=== PATIENT | male | born 1970 | race Caucasian/White ===

== ENCOUNTER 2018-11-11 05:41 | Inpatient (IN) | payer MEDICAID ==
[~2018-11-11] VITALS: Ht 180.3 cm; Wt 115.7 kg
[2018-11-11 05:48] VITALS: BP_SYST 207
[2018-11-11] MEDS ORDERED: METF1000 PO (05:55)
[2018-11-11] MEDS ORDERED: ASA81 PO (05:55)
[2018-11-11] MEDS ORDERED: SIMV20TA2 PO (05:55)
[2018-11-11] MEDS ORDERED: CARV12.548 PO (05:55)
[2018-11-11] MEDS ORDERED: FURO20TA4 PO (05:55)
[2018-11-11] MEDS ORDERED: IPRATROPIUM/ALBUTEROL SULFATE 3 ML AMPUL.NEB (DUONEB) INH ONE (06:00)
[2018-11-11] MEDS ORDERED: methylPREDNISolone SOD SUCC/PF 62.5 MG/ML VIAL IVP ONE (06:00)
[2018-11-11 06:17] LABS: BASOPHILS # (AUTO) 0.2 K/uL (0.0-0.2); BASOPHILS % (AUTO) 1.6 % (0.0-2.0); EOSINOPHILS # (AUTO) 0.3 K/uL (0.0-0.4); EOSINOPHILS % (AUTO) 1.8 % (0.0-4.0); HEMATOCRIT 47.8 % (36-54); HEMOGLOBIN 15.7 g/dL (14.0-18.0); LYMPHOCYTES # (AUTO) 0.9 K/uL (1.0-5.5); LYMPHOCYTES % (AUTO) 6.4 % (20.5-51.5); MEAN CORPUSCULAR HEMOGLOBIN 31 pg (27-31); MEAN CORPUSCULAR HGB CONC 33 % (32-36); MEAN CORPUSCULAR VOLUME 93 fL (79.0-98.0); MONOCYTES % (AUTO) 7.3 % (1.7-9.3); NEUTROPHILS # (AUTO) 11.5 K/uL (1.8-7.7); NEUTROPHILS % (AUTO) 82.9 % (40.0-70.0); PLATELET COUNT (AUTO) 266 K/uL (130-430); RED BLOOD CELL COUNT(AUTO) 5.15 MIL/uL (4.2-6.2); RED CELL DISTRIBUTION WIDTH 15.4 % (9.0-15.0); WHITE BLOOD COUNT (AUTO) 13.9 K/uL (4.8-10.8)
[2018-11-11 06:32] LABS: CALCIUM 8.2 mg/dL (8.4-11.0); CREATININE 1.14 mg/dL (0.55-1.30); POTASSIUM 4.2 mmol/L (3.5-5.1)
[2018-11-11 06:40] LABS: TOTAL BILIRUBIN 0.6 mg/dL (0.0-1.0)
[2018-11-11] MEDS ORDERED: ASPIRIN 325 MG TABLET PO ONE (07:30)
[2018-11-11] MEDS ORDERED: ASPIRIN 325 MG TABLET ONE (07:36)
[2018-11-11 08:39] VITALS: BP_SYST 167
[2018-11-11] MEDS ORDERED: FUROSEMIDE 20 MG TABLET PO SCH (09:00)
[2018-11-11] MEDS ORDERED: CARVEDILOL 12.5 MG TABLET (COREG) PO SCH (09:00)
[2018-11-11] MEDS ORDERED: ASPIRIN 81 MG TAB.CHEW PO ONE (09:00)
[2018-11-11] MEDS ORDERED: LISINOPRIL 20 MG TABLET PO ONE (09:15)
[2018-11-11] MEDS ORDERED: FUROSEMIDE 40 MG/4 ML VIAL IVP ONE (09:15)
[2018-11-11] MEDS ORDERED: metFORMIN HCL 500 MG TABLET PO ONE (09:30)
[2018-11-11] MEDS ORDERED: cloNIDine HCL 0.1 MG TABLET PO ONE (11:30)
[2018-11-11] MEDS: INSULIN LISPRO SLIDING SCALE 100 UNITS/ML VIAL (humaLOG) SUBCUT PRN ×3 (11:39→22:07)
[2018-11-11 11:56] LABS: BARBITURATE, URINE NEGATIVE (NEG <=200); URINE AMPHETAMINE POSITIVE (NEG <=500)
[2018-11-11 11:57] LABS: BENZODIAZEPINE, URINE NEGATIVE (NEG <=150); CANNABINOID, URINE NEGATIVE (NEG <=50); COCAINE, URINE NEGATIVE (NEG <=150); METHAMPHETAMINES SCREEN,URINE POSITIVE (NEG <=500); OPIATE, URINE NEGATIVE (NEG <=100); PHENCYCLIDINE SCREEN,URINE NEGATIVE (NEG <=25); UR TRICYCLIC ANTIDEPRESSANTS NEGATIVE (NEG <=300); URINE METHADONE NEGATIVE (NEG <=200); URINE OXYCODONE SCREEN NEGATIVE (NEG <=100); URINE PROPOXYPHENE SCREEN NEGATIVE (NEG <=300)
[2018-11-11 12:34] VITALS: BP_SYST 196
[2018-11-11] MEDS ORDERED: hydrALAZINE HCL 10 MG TABLET PO PRN (15:00)
[2018-11-11] MEDS: cefTRIAXone 1 GM in D5W 50 ML IV SCH (15:16)
[2018-11-11 15:49] VITALS: BP_SYST 161
[2018-11-11 16:00] VITALS: BP_SYST 161
[2018-11-11] MEDS ORDERED: metFORMIN HCL 500 MG TABLET PO SCH (18:00)
[2018-11-11] MEDS ORDERED: INSULIN GLARGINE 100 UNITS/ML 10 ML VIAL SUBCUT ONE (19:15)
[2018-11-11] MEDS: IPRATROPIUM/ALBUTEROL SULFATE 3 ML AMPUL.NEB (DUONEB) INH SCH (19:33)
[2018-11-11 20:00] VITALS: BP_SYST 145
[2018-11-11] MEDS: methylPREDNISolone SOD SUCC 40 MG/ML VIAL IVP SCH (21:22)
[2018-11-11] MEDS: SIMVASTATIN 20 MG TABLET PO SCH (21:23)
[2018-11-11] MEDS: CARVEDILOL 12.5 MG TABLET (COREG) PO SCH (21:23)
[2018-11-11] MEDS: FUROSEMIDE 40 MG/4 ML VIAL IVP SCH (21:24)
[2018-11-11] MEDS ORDERED: INSULIN GLARGINE 100 UNITS/ML 10 ML VIAL SUBCUT SCH (22:00)
[2018-11-11] MEDS ORDERED: LORazepam 1 MG TABLET PO SCH (22:30)
[2018-11-12] MEDS: IPRATROPIUM/ALBUTEROL SULFATE 3 ML AMPUL.NEB (DUONEB) INH SCH ×5 (00:11→23:20)
[2018-11-12 01:17] VITALS: BP_SYST 150
[2018-11-12] MEDS: INSULIN LISPRO SLIDING SCALE 100 UNITS/ML VIAL (humaLOG) SUBCUT PRN ×4 (06:18→20:29)
[2018-11-12 06:31] LABS: BASOPHILS % (AUTO) 0.2 % (0.0-2.0); HEMATOCRIT 49.5 % (36-54); HEMOGLOBIN 16.2 g/dL (14.0-18.0); LYMPHOCYTES # (AUTO) 0.7 K/uL (1.0-5.5); LYMPHOCYTES % (AUTO) 3.5 % (20.5-51.5); MEAN CORPUSCULAR HEMOGLOBIN 31 pg (27-31); MEAN CORPUSCULAR HGB CONC 33 % (32-36); MEAN CORPUSCULAR VOLUME 93 fL (79.0-98.0); MONOCYTES # (AUTO) 0.7 K/uL (0.0-1.0); MONOCYTES % (AUTO) 3.5 % (1.7-9.3); NEUTROPHILS # (AUTO) 18.4 K/uL (1.8-7.7); NEUTROPHILS % (AUTO) 92.8 % (40.0-70.0); PLATELET COUNT (AUTO) 311 K/uL (130-430); RED BLOOD CELL COUNT(AUTO) 5.33 MIL/uL (4.2-6.2); RED CELL DISTRIBUTION WIDTH 15.4 % (9.0-15.0)
[2018-11-12 07:05] LABS: WHITE BLOOD COUNT (AUTO) 19.8 K/uL (4.8-10.8)
[2018-11-12 07:32] LABS: CREATININE 1.49 mg/dL (0.55-1.30); POTASSIUM 4.3 mmol/L (3.5-5.1); THYROID STIMULATING HORMONE 0.44 uIu/mL (0.34-4.82); TOTAL BILIRUBIN 0.6 mg/dL (0.0-1.0)
[2018-11-12 08:01] VITALS: BP_SYST 125
[2018-11-12] MEDS: FUROSEMIDE 40 MG/4 ML VIAL IVP SCH ×2 (08:39→20:17)
[2018-11-12] MEDS: ASPIRIN 81 MG TAB.CHEW PO SCH (08:40)
[2018-11-12] MEDS: LISINOPRIL 20 MG TABLET PO SCH (08:41)
[2018-11-12] MEDS: CARVEDILOL 12.5 MG TABLET (COREG) PO SCH ×2 (08:42→20:15)
[2018-11-12] MEDS: methylPREDNISolone SOD SUCC 40 MG/ML VIAL IVP SCH ×2 (08:43→20:17)
[2018-11-12 12:29] VITALS: BP_SYST 122
[2018-11-12] MEDS: cefTRIAXone 1 GM in D5W 50 ML IV SCH (15:33)
[2018-11-12 16:54] VITALS: BP_SYST 145
[2018-11-12 20:08] VITALS: BP_SYST 128
[2018-11-12] MEDS: SIMVASTATIN 20 MG TABLET PO SCH (20:14)
[2018-11-13 00:55] VITALS: BP_SYST 106
[2018-11-13] MEDS: INSULIN LISPRO SLIDING SCALE 100 UNITS/ML VIAL (humaLOG) SUBCUT PRN ×4 (06:07→20:11)
[2018-11-13] MEDS: IPRATROPIUM/ALBUTEROL SULFATE 3 ML AMPUL.NEB (DUONEB) INH SCH ×3 (07:33→18:00)
[2018-11-13] MEDS: CARVEDILOL 12.5 MG TABLET (COREG) PO SCH ×2 (08:00→20:05)
[2018-11-13] MEDS: LISINOPRIL 20 MG TABLET PO SCH (08:01)
[2018-11-13] MEDS: ASPIRIN 81 MG TAB.CHEW PO SCH (08:01)
[2018-11-13] MEDS: FUROSEMIDE 40 MG/4 ML VIAL IVP SCH (08:02)
[2018-11-13] MEDS: methylPREDNISolone SOD SUCC 40 MG/ML VIAL IVP SCH (08:02)
[2018-11-13 08:16] VITALS: BP_SYST 127
[2018-11-13 08:39] LABS: HEMOGLOBIN 16.8 g/dL (14.0-18.0); LYMPHOCYTES # (AUTO) 0.9 K/uL (1.0-5.5)
[2018-11-13 08:42] LABS: CALCIUM 9.3 mg/dL (8.4-11.0); CREATININE 1.72 mg/dL (0.55-1.30); POTASSIUM 4.4 mmol/L (3.5-5.1)
[2018-11-13 08:45] LABS: BASOPHILS % (AUTO) 0.2 % (0.0-2.0); HEMATOCRIT 50.9 % (36-54); LYMPHOCYTES % (AUTO) 3.5 % (20.5-51.5); MEAN CORPUSCULAR HEMOGLOBIN 31 pg (27-31); MEAN CORPUSCULAR HGB CONC 33 % (32-36); MEAN CORPUSCULAR VOLUME 93 fL (79.0-98.0); MONOCYTES # (AUTO) 1.2 K/uL (0.0-1.0); MONOCYTES % (AUTO) 4.8 % (1.7-9.3); NEUTROPHILS # (AUTO) 23.7 K/uL (1.8-7.7); PLATELET COUNT (AUTO) 330 K/uL (130-430); RED BLOOD CELL COUNT(AUTO) 5.48 MIL/uL (4.2-6.2); WHITE BLOOD COUNT (AUTO) 25.8 K/uL (4.8-10.8)
[2018-11-13] MEDS ORDERED: INSULIN GLARGINE 100 UNITS/ML 10 ML VIAL SUBCUT ONE ×2 (08:45)
[2018-11-13 09:28] LABS: NEUTROPHILS % (AUTO) 91.5 % (40.0-70.0)
[2018-11-13 12:28] VITALS: BP_SYST 124
[2018-11-13] MEDS: cefTRIAXone 1 GM in D5W 50 ML IV SCH (14:13)
[2018-11-13 16:22] VITALS: BP_SYST 106
[2018-11-13] MEDS ORDERED: ZOLPIDEM TARTRATE 5 MG TABLET PO PRN (17:30)
[2018-11-13] MEDS ORDERED: MILK OF MAGNESIA 30 ML UDC PO ONE (19:00)
[2018-11-13 20:00] VITALS: BP_SYST 145
[2018-11-13] MEDS: SIMVASTATIN 20 MG TABLET PO SCH (20:06)
[2018-11-13] MEDS: DOCUSATE SODIUM 250 MG CAPSULE PO SCH (20:15)
[2018-11-13] MEDS: ALPRAZolam 0.25 MG TABLET PO PRN (23:06)
[2018-11-14 00:32] VITALS: BP_SYST 126
[2018-11-14] MEDS: IPRATROPIUM/ALBUTEROL SULFATE 3 ML AMPUL.NEB (DUONEB) INH SCH ×4 (06:00→20:12)
[2018-11-14] MEDS: INSULIN LISPRO SLIDING SCALE 100 UNITS/ML VIAL (humaLOG) SUBCUT PRN ×3 (06:12→21:26)
[2018-11-14 07:21] LABS: BASOPHILS # (AUTO) 0.1 K/uL (0.0-0.2); BASOPHILS % (AUTO) 0.3 % (0.0-2.0); EOSINOPHILS % (AUTO) 0.1 % (0.0-4.0); HEMATOCRIT 52.1 % (36-54); LYMPHOCYTES # (AUTO) 1.6 K/uL (1.0-5.5); LYMPHOCYTES % (AUTO) 10.1 % (20.5-51.5); MEAN CORPUSCULAR HEMOGLOBIN 31 pg (27-31); MEAN CORPUSCULAR HGB CONC 33 % (32-36); MEAN CORPUSCULAR VOLUME 94 fL (79.0-98.0); MONOCYTES # (AUTO) 1.6 K/uL (0.0-1.0); MONOCYTES % (AUTO) 9.7 % (1.7-9.3); PLATELET COUNT (AUTO) 308 K/uL (130-430); RED BLOOD CELL COUNT(AUTO) 5.55 MIL/uL (4.2-6.2); RED CELL DISTRIBUTION WIDTH 15.1 % (9.0-15.0); WHITE BLOOD COUNT (AUTO) 16.3 K/uL (4.8-10.8)
[2018-11-14 07:35] LABS: CALCIUM 8.8 mg/dL (8.4-11.0); CREATININE 1.58 mg/dL (0.55-1.30); POTASSIUM 4.2 mmol/L (3.5-5.1)
[2018-11-14 08:25] VITALS: BP_SYST 137
[2018-11-14] MEDS: LISINOPRIL 20 MG TABLET PO SCH (08:27)
[2018-11-14] MEDS: ASPIRIN 81 MG TAB.CHEW PO SCH (08:27)
[2018-11-14] MEDS: FUROSEMIDE 40 MG/4 ML VIAL IVP SCH (08:27)
[2018-11-14] MEDS: DOCUSATE SODIUM 250 MG CAPSULE PO SCH ×2 (08:27→20:50)
[2018-11-14] MEDS: CARVEDILOL 12.5 MG TABLET (COREG) PO SCH ×2 (08:28→20:49)
[2018-11-14] MEDS ORDERED: INSULIN GLARGINE 100 UNITS/ML 10 ML VIAL SUBCUT ONE (08:30)
[2018-11-14 10:00] LABS: NEUTROPHILS % (AUTO) 79.8 % (40.0-70.0)
[2018-11-14 11:17] VITALS: BP_SYST 129
[2018-11-14] MEDS: ALPRAZolam 0.25 MG TABLET PO PRN (12:57)
[2018-11-14] MEDS: cefTRIAXone 1 GM in D5W 50 ML IV SCH (14:14)
[2018-11-14 17:06] VITALS: BP_SYST 149
[2018-11-14 19:15] VITALS: BP_SYST 131
[2018-11-14] MEDS: SIMVASTATIN 20 MG TABLET PO SCH (20:49)
[2018-11-15] VITALS (7 sets, daily range): BP systolic 104–146
[2018-11-15] MEDS: IPRATROPIUM/ALBUTEROL SULFATE 3 ML AMPUL.NEB (DUONEB) INH SCH ×5 (00:35→20:02)
[2018-11-15] MEDS: INSULIN LISPRO SLIDING SCALE 100 UNITS/ML VIAL (humaLOG) SUBCUT PRN ×4 (06:07→20:19)
[2018-11-15 06:43] LABS: BASOPHILS # (AUTO) 0.1 K/uL (0.0-0.2); BASOPHILS % (AUTO) 0.6 % (0.0-2.0); EOSINOPHILS # (AUTO) 0.2 K/uL (0.0-0.4); EOSINOPHILS % (AUTO) 1.5 % (0.0-4.0); HEMOGLOBIN 17.8 g/dL (14.0-18.0); LYMPHOCYTES # (AUTO) 1.6 K/uL (1.0-5.5); LYMPHOCYTES % (AUTO) 13.3 % (20.5-51.5); MEAN CORPUSCULAR HEMOGLOBIN 31 pg (27-31); MEAN CORPUSCULAR HGB CONC 33 % (32-36); MEAN CORPUSCULAR VOLUME 93 fL (79.0-98.0); MONOCYTES # (AUTO) 1.3 K/uL (0.0-1.0); MONOCYTES % (AUTO) 10.8 % (1.7-9.3); NEUTROPHILS # (AUTO) 8.7 K/uL (1.8-7.7); NEUTROPHILS % (AUTO) 73.8 % (40.0-70.0); PLATELET COUNT (AUTO) 288 K/uL (130-430); RED BLOOD CELL COUNT(AUTO) 5.78 MIL/uL (4.2-6.2); RED CELL DISTRIBUTION WIDTH 15.1 % (9.0-15.0); WHITE BLOOD COUNT (AUTO) 11.8 K/uL (4.8-10.8)
[2018-11-15 07:04] LABS: CALCIUM 8.8 mg/dL (8.4-11.0); CREATININE 1.28 mg/dL (0.55-1.30)
[2018-11-15] MEDS: DOCUSATE SODIUM 250 MG CAPSULE PO SCH ×2 (08:19→20:12)
[2018-11-15] MEDS: CARVEDILOL 12.5 MG TABLET (COREG) PO SCH ×2 (08:20→20:13)
[2018-11-15] MEDS: ASPIRIN 81 MG TAB.CHEW PO SCH (08:20)
[2018-11-15] MEDS: LISINOPRIL 20 MG TABLET PO SCH (08:20)
[2018-11-15] MEDS: FUROSEMIDE 40 MG/4 ML VIAL IVP SCH (08:21)
[2018-11-15] MEDS: ALBUTEROL SULFATE 0.083% 2.5 MG/3 ML VIAL.NEB INH PRN (09:29)
[2018-11-15] MEDS: IPRATROPIUM BROM 0.5 MG/2.5 ML VIAL.NEB (ATROVENT) INH PRN (09:29)
[2018-11-15] MEDS ORDERED: ALBUTEROL SULFATE 0.083% 2.5 MG/3 ML VIAL.NEB INH ONE (09:35)
[2018-11-15] MEDS ORDERED: IPRATROPIUM BROM 0.5 MG/2.5 ML VIAL.NEB (ATROVENT) INH ONE (09:35)
[2018-11-15] MEDS: cefTRIAXone 1 GM in D5W 50 ML IV SCH (14:45)
[2018-11-15] MEDS: SIMVASTATIN 20 MG TABLET PO SCH (20:12)
[2018-11-15] MEDS: ALPRAZolam 0.25 MG TABLET PO PRN (22:11)
[2018-11-16] MEDS: IPRATROPIUM/ALBUTEROL SULFATE 3 ML AMPUL.NEB (DUONEB) INH SCH ×4 (03:10→19:42)
[2018-11-16] MEDS: INSULIN LISPRO SLIDING SCALE 100 UNITS/ML VIAL (humaLOG) SUBCUT PRN ×4 (06:05→21:23)
[2018-11-16 06:39] LABS: CALCIUM 8.7 mg/dL (8.4-11.0); CHLORIDE 105 mmol/L (98-107); CREATININE 1.25 mg/dL (0.55-1.30); GLUCOSE 243 mg/dL (70-99); POTASSIUM 3.7 mmol/L (3.5-5.1); SODIUM SERUM 133 mmol/L (136-145); UREA NITROGEN, BLOOD 36 mg/dL (8-21)
[2018-11-16 06:43] LABS: GFR AFRICAN AMERICAN 79 mL/min (>90)
[2018-11-16 06:44] LABS: ANION GAP < 0 (5-15)
[2018-11-16] MEDS: ASPIRIN 81 MG TAB.CHEW PO SCH (07:59)
[2018-11-16] MEDS: CARVEDILOL 12.5 MG TABLET (COREG) PO SCH ×2 (08:00→21:20)
[2018-11-16] MEDS: ALPRAZolam 0.25 MG TABLET PO PRN ×2 (08:00→21:16)
[2018-11-16] MEDS: DOCUSATE SODIUM 250 MG CAPSULE PO SCH ×3 (08:00→21:00)
[2018-11-16] MEDS: FUROSEMIDE 40 MG TABLET PO SCH ×2 (08:00→21:18)
[2018-11-16] MEDS: LISINOPRIL 20 MG TABLET PO SCH (08:01)
[2018-11-16 08:17] VITALS: BP_SYST 136
[2018-11-16 11:23] VITALS: BP_SYST 151
[2018-11-16] MEDS: cefTRIAXone 1 GM in D5W 50 ML IV SCH (15:22)
[2018-11-16 15:46] VITALS: BP_SYST 130
[2018-11-16] MEDS: IPRATROPIUM BROM 0.5 MG/2.5 ML VIAL.NEB (ATROVENT) INH PRN (17:00)
[2018-11-16] MEDS: ALBUTEROL SULFATE 0.083% 2.5 MG/3 ML VIAL.NEB INH PRN (17:00)
[2018-11-16 19:08] VITALS: BP_SYST 136
[2018-11-16] MEDS: SIMVASTATIN 20 MG TABLET PO SCH (21:16)
[2018-11-16 23:33] VITALS: BP_SYST 108
[2018-11-17] MEDS: IPRATROPIUM/ALBUTEROL SULFATE 3 ML AMPUL.NEB (DUONEB) INH SCH ×3 (01:05→12:00)
[2018-11-17] MEDS: INSULIN LISPRO SLIDING SCALE 100 UNITS/ML VIAL (humaLOG) SUBCUT PRN ×3 (06:12→17:43)
[2018-11-17 08:05] VITALS: BP_SYST 121
[2018-11-17] MEDS: ASPIRIN 81 MG TAB.CHEW PO SCH (08:45)
[2018-11-17] MEDS: LISINOPRIL 20 MG TABLET PO SCH (08:45)
[2018-11-17] MEDS: FUROSEMIDE 40 MG TABLET PO SCH (08:46)
[2018-11-17] MEDS: CARVEDILOL 12.5 MG TABLET (COREG) PO SCH (08:46)
[2018-11-17] MEDS: DOCUSATE SODIUM 250 MG CAPSULE PO SCH (08:46)
[2018-11-17 11:22] VITALS: BP_SYST 145
[2018-11-17] MEDS: cefTRIAXone 1 GM in D5W 50 ML IV SCH (14:18)
[2018-11-17 15:10] VITALS: BP_SYST 117
[2018-11-17 17:12] VITALS: BP_SYST 121
[2018-11-17] MEDS ORDERED: LISI-600 PO (17:19)
[2018-11-17] MEDS ORDERED: IPRA3AMP9 INH (17:20)
[2018-11-17] MEDS ORDERED: HYDR-4037 PO (17:20)
== END 2018-11-17 17:55 | disposition home health service (06) | DRG 812 ==
LOC: SED 05:41 → STU 07:53 → SMU 11-15 12:58 → STU 11-15 13:28 → SMU 11-15 13:39
PROVIDERS: ADMIT Internal Medicine; ATTEND Internal Medicine
PROC: 5A09357 Assistance with Respiratory Ventilation, Less than 24 Consecutive Hours, Continuous Positive Airway Pressure (ICD-10-PCS; principal; 2018-11-12)
PROC: 5A09357 Assistance with Respiratory Ventilation, Less than 24 Consecutive Hours, Continuous Positive Airway Pressure (ICD-10-PCS; 2018-11-14)
PROC: 5A09357 Assistance with Respiratory Ventilation, Less than 24 Consecutive Hours, Continuous Positive Airway Pressure (ICD-10-PCS; 2018-11-15)
PROC: 5A09357 Assistance with Respiratory Ventilation, Less than 24 Consecutive Hours, Continuous Positive Airway Pressure (ICD-10-PCS; 2018-11-16)
DX: T43.621A Poisoning by amphetamines, accidental (unintentional), initial encounter (principal); I21.A1 Myocardial infarction type 2; N17.0 Acute kidney failure with tubular necrosis; J96.01 Acute respiratory failure with hypoxia; J96.02 Acute respiratory failure with hypercapnia; I27.20 Pulmonary hypertension, unspecified; J45.901 Unspecified asthma with (acute) exacerbation; E11.22 Type 2 diabetes mellitus with diabetic chronic kidney disease; I50.9 Heart failure, unspecified; I13.0 Hypertensive heart and chronic kidney disease with heart failure and stage 1 through stage 4 chronic kidney disease, or unspecified chronic kidney disease; N18.4 Chronic kidney disease, stage 4 (severe); I42.0 Dilated cardiomyopathy; E78.5 Hyperlipidemia, unspecified; F17.210 Nicotine dependence, cigarettes, uncomplicated; G47.33 Obstructive sleep apnea (adult) (pediatric); I45.9 Conduction disorder, unspecified; I42.7 Cardiomyopathy due to drug and external agent; T38.0X5A Adverse effect of glucocorticoids and synthetic analogues, initial encounter; D72.829 Elevated white blood cell count, unspecified; E66.8 Other obesity; Z79.82 Long term (current) use of aspirin; Z79.84 Long term (current) use of oral hypoglycemic drugs; Z79.899 Other long term (current) drug therapy; Z83.3 Family history of diabetes mellitus; Z68.35 Body mass index [BMI] 35.0-35.9, adult; Z71.52 Counseling for family member of drug abuser; Y92.89 Other specified places as the place of occurrence of the external cause
CPT/HCPCS: 36415; 36600; 71045; 73552; 76700-TC; 80048; 80053; 80061; 80307; 82803-TC; 82962; 83036; 83735-TC; 83880; 84443-TC; 84484; 85025; 85379; 93005; 93306; 94640; 94660; 94760; 99285; G0378; J0696; J1030; J1815; J1940; J2930; J7060; J7613; J7620